=== PATIENT | male | born 1995 | race Caucasian/White ===

== ENCOUNTER 2016-09-18 22:36 | Emergency (ER) | payer OTHER ==
[~2016-09-18] VITALS: Ht 188 cm; Wt 69.5 kg
[2016-09-18 22:40] VITALS: BP 128/75; PULSE 115; RESP 16; O2SAT 97
--- NOTE | 2016-09-18 22:47 | ED.REPORT ---
HPI-Rash / Abscess Date of Service Sep 18, 2016 ED Provider: Trae Arriola MD A 21 year old male with no pertinent medical history presents to the ED complaining of an infected cut on his left upper thigh. 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 There was initially a small amount of purulent drainage from the affected area. He cleaned the wound with hydrogen peroxide and replaced dressings daily, which seemed to improve the appearance of the cut. However the area began swelling yesterday and became painful today. Ibuprofen helped to relieve the pain, but it worsened tonight and began to radiate into his groin. The pt has no history of similar symptoms and denies recent exposure to anyone with a skin infection. Nursing Notes Stated Complaint: LEFT LEG INFECTION Chief Complaint: Skin Rash/Abscess Nursing Notes Reviewed: Yes (908 Devices, IntelliB[employer] not reconciled) Allergies: Coded Allergies: No Known Allergies (Unverified , 09/18/16) General Time Seen by MD: 22:46 Chief Complaint Abscess Hx Obtained From: Patient Arrived By: Walk-in Onset Occurred: 1 week ago Symptom Duration: Since onset Recent Healthcare: No recent doctor visit, No recent hospitalization Similar Sx Previous: No Past Medical History Past Medical History none reported Past Surgical History none reported Smoking History Never Smoker Social History Alcohol Use: "Social" ("every one or two weeks") Drug Use: THC Other Social History: Good social support Ambulatory Status Independent Review of Systems Review of Systems Note: left upper thigh abscess with swelling Constitutional: Denies: Chills, Fever Respiratory: Denies: Non-productive cough, Shortness of breath Cardiovascular: Denies: Chest pain GI: Denies: Abdominal pain, Diarrhea, Nausea, Vomiting Musculoskeletal: Denies: Back pain, Neck pain Complete sys rev & neg: except as marked. Physical Exam Initial Vital Signs Vital Signs (First) Date Time Temp Pulse Resp B/P Pulse Ox O2 Delivery O2 Flow Rate FiO2 09/18/16 22:40 37.9 115 16 128/75 97 Room Air Initial VS: Reviewed, Vital signs abnormal General/Constitutional: Awake, Alert Skin: Color NL, Warm, Dry 4 cm by 4 cm area of cellulitis and induration concerning for abscess on proximal left thigh Head / Eyes: Atraumatic, Normocephalic, PERRL, EOMI ENT: Atraumatic, Airway patent, Mucous membranes moist Respiratory / Chest: Atraumatic, Breath sounds NL, Breath sounds = bilat, No respiratory distress Cardiovascular: Heart rate NL, Regular rhythm, Heart sounds NL Upper Extremity / MS: Atraumatic, Full range of motion Lower Extremity / Pelvis / MS: Full range of motion Neurologic: Oriented X3, Speech NL, No motor deficits, No sensory deficits Neck: Atraumatic, Supple, Full range of motion Abdomen: Atraumatic, Soft, Non-tender Back: Atraumatic, Full range of motion Psychiatric: Affect NL, Mood NL Interpretation & Diagnostics Lab Results Interpretation Lab Results Interpretation: Wound culture sent left thigh Procedures Incision & Drainage Abscess I & D Abscess: hard indurated area suspicious for abscess made incision with a #11 scalpel and probed with no purulent return probed area with 16 guage needle able to penetrate induration, still no purulent return culture taken, but suspicious that the indurated area is a swollen lymph node Time: 23:40 Procedure Performed by: ED physician Consent / Setup / Site Prep: Consent from patient, Time-out performed, Hand hygiene observed, Stand sterile technique Skin Preparation Agent: Hibiclens - Chlorhexidine Local Anesthesia: Bupivacaine 0.5% (with epi) Incised Abscess with Scalpel: #11 Pus Drained: No purulence Irrigation: Yes, Copious Post-Procedure / Complications: Culture obtained, Dressing applied, No complications, Condition improved, Tolerated procedure well, Patient stable Re-Eval/Medical Decision Med Decision/Clinical Course This is a 21-year-old male presents with a left leg infection. Consider wound the proximal left thigh, develops swelling redness and pain, and reports a trace amount of drainage earlier. The pains got to the point that he came in. Previous history of MRSA, denies drug use or injection beyond marijuana and attending a rave recently. The patient is nontoxic, afebrile well-appearing. He does have a small area of cellulitis with 3-4 cm in an area of induration for which a suspicious about an abscess. He was not clearly fluctuant, but was severely indurated and is in a size to be suspicious for abscess. The patient received a dose of pain medicine, then local anesthetic would be became with epinephrine was used, a small incision with a #11 scalpel was made- no. Material was obtained. The wound was probed, and is clearly in the indurated area and would expect to get easy drainage without difficulty-none was obtained. I made several passes with a 16-gauge needle through the area of induration and no purulence. Appointment suspected for phlegmon versus lymph gland, and the patient's being treated empirically with antibiotics with Bactrim prescribed. Routine precautions reviewed along with instructions to return to emergency department if not clearly improving in 2-3 days-or if any worsening occurs. Work note was authored. She reports the initial wound occurred at work, so work paperwork L&I Paper was completed. Source of Hx: Old records Re-Evaluation/Progress : Time of Eval: 23:40 Patient Status: Condition improved Re-Evaluation/Progress Note: Pt rechecked, who is comfortable. I&D is performed without complication, and pt's condition improves. The plan for discharge is discussed. The pt understands and agrees with the plan. All questions are addressed at this time. Differential Diagnosis: Positive: Cellulitis, Negative: Abscess, Erythema multiforme, Gangrene, Heat rash, miliaria, Henoch -Schonlein purpura, Herpes zoster, Osteomyelitis, Pediculosis (lice), Perirectal abscess, Pityriasis rosea, Psoriasis, Jone mt spotted fever, Rosacea , Tinea capitas, corporis, Viral exanthem Counseled Regarding: Diagnosis, Need for follow-up, When/why to return to ED Discharge & Departure Impression: Primary Impression: Wound of left groin Encounter type: initial encounter Qualified Code: S31.109A - Unspecified open wound of abdominal wall, unspecified quadrant without penetration into peritoneal cavity, initial encounter Additional Impression: Cellulitis Site of cellulitis of extremity: lower extremity Disposition: Home Discharge Condition All VS Reviewed: Yes Condition: Stable Additional Instructions: 1. You have an infection of the left groin. 2. I was concerned for an abscess (a pocket of pus), but did not find a drainable pocket on incision and aspiration - indicating that the hard swelling (induration) is likely a lymph node. 3. Take the antibiotic trimethoprim/sulfa DS 1 tab twice a day for 7 days. 4. A wound culture was taken from the site and takes 2-3 days for results. Call [phone] for results 5. It usually takes ~2 days after starting antibiotics for symptoms to really start to be improving. If not improving, or if new/worsening symptoms - return to the Ed. 6. Activities as tolerated (OK to shower). 7. Take ibuprofen 400-800mg three times a day for pain 8. If needed for more severe pain take 1 tab oxycodone/APAP 5/325 up to every 4- 6 hours for pain. Note: This medication does contain narcotic and causes drowsiness. No driving for at least 4-6 hours after taking. Referrals: Nancy Lopez (PCP) Scribe Attestation Portions of this note were transcribed by Milli Decker. I, Dr. Arriola personally performed the history, physical exam and medical decision-making; I reviewed and confirmed the accuracy of the information in the transcribed note. Signed by: August Pérez, 09/19/2016, 00:06 copies to: Nancy Lopez Matthew F MD Sep 18, 2016 22:47 MILLI DECKER Sep 19, 2016 00:06
[2016-09-18] MEDS ORDERED: _oxyCODONE/APAP 5-325 mg Tablet PO PRN (22:55)
[2016-09-18] MEDS ORDERED: _Trimethoprim-Sulfa 160/800 mg Tablet PO SCH (22:55)
[2016-09-18] MEDS ORDERED: Trimethoprim-Sulfa 160 mg-800 mg Tablet PO ONE (22:55)
[2016-09-18] MEDS ORDERED: Ondansetron 8 mg ODT Tablet PO ONE (22:55)
[2016-09-18] MEDS ORDERED: HYDROmorphone 1 mg/mL Inj IM ONE (22:55)
[2016-09-18] MEDS ORDERED: Bupivacaine 0.5%/EPI 50 mL Inj ONE (23:20)
[2016-09-19 00:21] VITALS: BP 132/70; PULSE 102; RESP 20; O2SAT 99
== END 2016-09-19 00:22 | disposition home or self-care (01) ==
LOC: SED 22:36
DX: S31.109A Unspecified open wound of abdominal wall, unspecified quadrant without penetration into peritoneal cavity, initial encounter (principal); L03.116 Cellulitis of left lower limb; W26.9XXA Contact with unspecified sharp object(s), initial encounter; Y93.G1 Activity, food preparation and clean up; Y99.0 Civilian activity done for income or pay; Y92.233 Cafeteria of hospital as the place of occurrence of the external cause; F17.200 Nicotine dependence, unspecified, uncomplicated
CPT/HCPCS: 10060; 87070; 87186; 87205; 96372; 99284; J1170